=== PATIENT | female | born 1995 | race Caucasian/White ===

== ENCOUNTER 2021-10-15 10:12 | Observation (INO) ==
[2021-10-15] MEDS ORDERED: 0.9 % Sodium Chloride 1,000 ML IVC ONE (10:44)
[2021-10-15 11:29] LABS: Bacteria,Urine Few per hpf (None-Few); Bilirubin,Urine Negative (Negative); Blood,Urine Negative (Negative); Clarity,Urine Clear (Clear); Color,Urine Yellow (Yellow); Glucose,Urine (UA) Normal (Normal); Ketones,Urine >150 mg/dL (Negative); Leukocyte Esterase,Urine Small (Negative); Mucus,Urine Moderate per lpf (None-Few); Nitrite,Urine Negative (Negative); PH,Urine 5.5 pH Units (5.0-8.0); Protein,Urine Trace mg/dL (Neg-Trace); RBC,Urine 0-3 per hpf (0-3); Specific Gravity,Urine 1.026 (1.010-1.025); Squamous Epithelial Cell,Urine Few per hpf (None-Few); WBC,Urine 0-3 per hpf (0-3)
[2021-10-15 12:32] LABS: Basophils % 0.3 %; Eosinophils % 0.1 %; Hematocrit 35.6 % (35.3-44.9); Hemoglobin 12.1 g/dL (11.5-15.4); Immature Granulocytes % 0.3 % (0-4); Lymphocytes % 13.2 %; Mean Corpuscular Hemoglobin 29.1 pg (28.0-33.3); Mean Corpuscular Volume 85.6 fL (83.0-100.0); Mean Platelet Volume 11.2 fL (9.4-12.4); Monocytes # 0.3 K/mcL (0.0-1.3); Monocytes % 4.6 %; Neutrophils # 5.9 K/mcL (1.6-8.9); Platelet Count 174 K/mcL (140-400); Red Blood Count 4.16 M/mcL (3.82-4.97); Red Cell Distribution Width 12.6 % (11.5-14.5); Segmented Neutrophils % 81.5 %; White Blood Count 7.2 K/mcL (4.3-11.1)
[2021-10-15 12:45] LABS: Alanine Aminotransferase 8 Units/L (7-52); Albumin 4.2 g/dL (3.5-5.7); Albumin/Globulin Ratio 1.4 (1.1-2.2); Alkaline Phosphatase 90 Units/L (34-104); Aspartate Amino Transferase 17 Units/L (13-39); BUN/Creatinine Ratio 20 (6-26); Bilirubin,Total 0.6 mg/dL (0.3-1.0); Blood Urea Nitrogen 11 mg/dL (6-20); Carbon Dioxide 23 mEq/L (23-29); Chloride 103 mEq/L (98-107); Globulin 2.9 g/dL (2.4-3.5); Glucose 74 mg/dL (70-105); Lipase 11 Units/L (11-82); Osmolality,Calculated 280 (280-300); Potassium 3.8 mEq/L (3.5-5.1); Sodium 136 mEq/L (136-145); Total Protein 7.1 g/dL (6.4-8.9); eGFR For African Americans > 60 (> 60); eGFR For Non-African Americans > 60 (> 60)
[2021-10-15] MEDS: Pyridoxine (B-6) 100 MG/ML VIAL IVP ONE ×2 (12:59→14:31)
[2021-10-15] MEDS ORDERED: 0.9 % Sodium Chloride 500 ML IVC ONE (13:56)
[2021-10-15] MEDS ORDERED: Rho Immune Globulin 1,500 UNIT SYRINGE IM ONE (14:56)
[2021-10-15] MEDS ORDERED: *HR* Promethazine 25 MG/ML VIAL IM ONE (15:02)
[2021-10-15] MEDS ORDERED: Pyridoxine (B-6) 100 MG/ML VIAL IVP ONE (16:09)
[2021-10-15] MEDS ORDERED: *HR* Promethazine 25 MG/ML VIAL IM PRN (17:05)
[2021-10-15] MEDS ORDERED: Ondansetron 4 MG/2 ML VIAL IVP PRN (17:11)
[2021-10-15] MEDS: Ringers Solution, Lactated 1,000 ML IVC SCH ×2 (17:59→22:11)
[2021-10-15] MEDS: Pantoprazole 40 MG VIAL IVP SCH ×2 (18:00→22:03)
[2021-10-15 22:42] LABS: Hematocrit 36.2 % (35.3-44.9); Hemoglobin 12.2 g/dL (11.5-15.4)
[2021-10-15] MEDS: *HR* Promethazine 25 MG/ML VIAL IM PRN (22:47)
[2021-10-16 01:50] LABS: Basophils % 0.6 %; Eosinophils % 0.3 %; Hematocrit 33.5 % (35.3-44.9); Hemoglobin 11.3 g/dL (11.5-15.4); Immature Granulocytes % 0.1 % (0-4); Lymphocytes # 1.4 K/mcL (0.6-4.6); Lymphocytes % 20.2 %; Mean Corpuscular HGB Conc 33.7 g/dL (31.6-35.5); Mean Corpuscular Hemoglobin 28.8 pg (28.0-33.3); Mean Corpuscular Volume 85.5 fL (83.0-100.0); Mean Platelet Volume 10.6 fL (9.4-12.4); Monocytes # 0.4 K/mcL (0.0-1.3); Monocytes % 6.3 %; Neutrophils # 5.1 K/mcL (1.6-8.9); Platelet Count 163 K/mcL (140-400); Red Blood Count 3.92 M/mcL (3.82-4.97); Red Cell Distribution Width 12.7 % (11.5-14.5); Segmented Neutrophils % 72.5 %
[2021-10-16 01:57] LABS: INR 1.4; Prothrombin Time 15.3 Seconds (9.4-12.1)
[2021-10-16 02:09] LABS: Alanine Aminotransferase 6 Units/L (7-52); Albumin 3.6 g/dL (3.5-5.7); Albumin/Globulin Ratio 1.5 (1.1-2.2); Alkaline Phosphatase 77 Units/L (34-104); Aspartate Amino Transferase 19 Units/L (13-39); BUN/Creatinine Ratio 20 (6-26); Bilirubin,Total 0.6 mg/dL (0.3-1.0); Blood Urea Nitrogen 9 mg/dL (6-20); Calcium 8.4 mg/dL (8.6-10.3); Carbon Dioxide 18 mEq/L (23-29); Chloride 106 mEq/L (98-107); Globulin 2.4 g/dL (2.4-3.5); Glucose 61 mg/dL (70-105); Magnesium 1.7 mg/dL (1.6-2.6); Osmolality,Calculated 271 (280-300); Potassium 3.8 mEq/L (3.5-5.1); Sodium 132 mEq/L (136-145)
[2021-10-16] MEDS: Pantoprazole 40 MG VIAL IVP SCH ×2 (05:51→20:09)
[2021-10-16] MEDS ORDERED: Dextrose Gel 15 GM/37.5 ML TUBE PO PRN ×2 (08:06)
[2021-10-16] MEDS ORDERED: D5% in Water 1,000 ML IVC PRN (08:06)
[2021-10-16] MEDS: *HR* Dextrose 50 % in Water (Syg) 50 ML SYRINGE IVP PRN ×2 (08:13→11:13)
[2021-10-16] MEDS: *HR* Promethazine 25 MG/ML VIAL IM PRN (08:25)
[2021-10-16] MEDS ORDERED: Sennosides/Docusate Sodium TABLET PO SCH (10:00)
[2021-10-16] MEDS: Acetaminophen 325 MG TABLET PO PRN (10:47)
[2021-10-16] MEDS: Ringers Solution, Lactated 1,000 ML IVC SCH ×2 (10:49→20:10)
[2021-10-16] MEDS ORDERED: Ondansetron ODT 4 MG TAB.RAPDIS SL PRN ×2 (10:58→19:15)
[2021-10-16] MEDS ORDERED: Scopolamine Patch 1.5 MG PATCH.TD72 TD SCH (19:30)
[2021-10-16] MEDS: Pyridoxine (B-6) 50 MG TABLET PO SCH (20:52)
[2021-10-17] MEDS: Ringers Solution, Lactated 1,000 ML IVC SCH ×2 (00:34→08:06)
[2021-10-17] MEDS: Pantoprazole 40 MG VIAL IVP SCH ×2 (06:09→17:19)
[2021-10-17] MEDS ORDERED: Chloraseptic Spray 177 ML BOTTLE MM PRN (06:12)
[2021-10-17] MEDS: Pyridoxine (B-6) 50 MG TABLET PO SCH ×3 (09:41→20:21)
[2021-10-17] MEDS: polyethylene glycoL 3350 17 GM POWD.PACK PO SCH (09:41)
[2021-10-17] MEDS: Prenatal Vit/FA 1 EACH TABLET PO SCH (09:41)
[2021-10-17] MEDS: Acetaminophen 325 MG TABLET PO PRN (11:06)
[2021-10-17] MEDS ORDERED: Ringers Solution, Lactated 1,000 ML IVC SCH (14:00)
[2021-10-17] MEDS ORDERED: Pyridoxine (B-6) 20 MG, DiphenhydraMINE 50 MG, MVI, adult with vitamin K 10 ML in D5%... IVP SCH (15:00)
[2021-10-17] MEDS: dexAMETHasone 4 MG TABLET PO SCH ×2 (16:13→20:21)
[2021-10-17] MEDS ORDERED: Pyridoxine (B-6) 20 MG, DiphenhydraMINE 50 MG, MVI, adult with vitamin K 10 ML in D5%... IVPB SCH (17:00)
[2021-10-17] MEDS: PYRIDOXINE IVP SCH ×2 (17:19→22:40)
[2021-10-17] MEDS: DIPHENHYDRAMINE IVP SCH ×2 (17:19→22:40)
[2021-10-17] MEDS: D5 IVP SCH ×2 (17:19→22:40)
[2021-10-17] MEDS: LACTATED RINGERS IVP SCH ×2 (17:19→22:40)
[2021-10-17] MEDS ORDERED: VITAMIN K IVPB SCH (18:00)
[2021-10-17] MEDS ORDERED: SODIUM CHLORIDE 0.9% IVPB SCH (18:00)
[2021-10-17] MEDS ORDERED: MVI IVPB SCH (18:00)
[2021-10-17] MEDS ORDERED: LACTATED RINGERS IVPB SCH (23:00)
[2021-10-17] MEDS ORDERED: D5 IVPB SCH (23:00)
[2021-10-17] MEDS ORDERED: PYRIDOXINE IVPB SCH (23:00)
[2021-10-17] MEDS ORDERED: DIPHENHYDRAMINE IVPB SCH (23:00)
[2021-10-18] MEDS: dexAMETHasone 4 MG TABLET PO SCH ×2 (01:48→07:30)
[2021-10-18 03:50] LABS: Alanine Aminotransferase 13 Units/L (7-52); Albumin 3.9 g/dL (3.5-5.7); Albumin/Globulin Ratio 1.4 (1.1-2.2); Alkaline Phosphatase 71 Units/L (34-104); Aspartate Amino Transferase 30 Units/L (13-39); BUN/Creatinine Ratio 13 (6-26); Bilirubin,Total 0.3 mg/dL (0.3-1.0); Blood Urea Nitrogen 6 mg/dL (6-20); Calcium 8.5 mg/dL (8.6-10.3); Carbon Dioxide 20 mEq/L (23-29); Chloride 109 mEq/L (98-107); Globulin 2.7 g/dL (2.4-3.5); Glucose 182 mg/dL (70-105); Osmolality,Calculated 284 (280-300); Potassium 3.6 mEq/L (3.5-5.1); Sodium 136 mEq/L (136-145); Total Protein 6.6 g/dL (6.4-8.9)
[2021-10-18 03:51] LABS: BUN/Creatinine Ratio 11 (6-26); Blood Urea Nitrogen 6 mg/dL (6-20); Calcium 8.7 mg/dL (8.6-10.3); Carbon Dioxide 19 mEq/L (23-29); Chloride 109 mEq/L (98-107); Glucose 184 mg/dL (70-105); Magnesium 1.5 mg/dL (1.6-2.6); Osmolality,Calculated 284 (280-300); Potassium 3.7 mEq/L (3.5-5.1); Sodium 136 mEq/L (136-145)
[2021-10-18] MEDS: Pantoprazole 40 MG VIAL IVP SCH (04:34)
[2021-10-18] MEDS: LACTATED RINGERS IVP SCH ×2 (04:35→10:28)
[2021-10-18] MEDS: D5 IVP SCH ×2 (04:35→10:28)
[2021-10-18] MEDS: PYRIDOXINE IVP SCH ×2 (04:35→10:28)
[2021-10-18] MEDS: DIPHENHYDRAMINE IVP SCH ×2 (04:35→10:28)
[2021-10-18] MEDS: Prenatal Vit/FA 1 EACH TABLET PO SCH (07:30)
[2021-10-18] MEDS: Pyridoxine (B-6) 50 MG TABLET PO SCH (07:30)
[2021-10-18] MEDS: Acetaminophen 325 MG TABLET PO PRN (07:30)
[2021-10-18] MEDS: polyethylene glycoL 3350 17 GM POWD.PACK PO SCH (07:35)
[2021-10-18 11:03] VITALS: BP 106/62; PULSE 99; TEMP 97.9; O2SAT 97
== END 2021-10-18 14:39 | disposition home or self-care (01) ==
LOC: EMEROOARM 10:12 → 3BNU 10:12 → SUATTDRO 21:28 → 3BNU 22:15
PROVIDERS: ADMIT Internal Medicine; ATTEND Nurse Practitioner

== ENCOUNTER 2021-10-22 21:05 | Observation (INO) ==
[2021-10-22] MEDS ORDERED: Ringers Solution, Lactated 1,000 ML IVC ONE (22:05)
[2021-10-22] MEDS ORDERED: *HR* Promethazine 25 MG/ML VIAL IM PRN (22:07)
[2021-10-22 22:26] LABS: Basophils % 0.3 %; Eosinophils # 0.1 K/mcL (0.0-0.6); Eosinophils % 0.6 %; Hematocrit 35.4 % (35.3-44.9); Hemoglobin 12.5 g/dL (11.5-15.4); Immature Granulocytes % 0.4 % (0-4); Lymphocytes # 2.3 K/mcL (0.6-4.6); Lymphocytes % 21.3 %; Mean Corpuscular HGB Conc 35.3 g/dL (31.6-35.5); Mean Corpuscular Hemoglobin 29.4 pg (28.0-33.3); Mean Corpuscular Volume 83.3 fL (83.0-100.0); Mean Platelet Volume 10.9 fL (9.4-12.4); Monocytes # 0.5 K/mcL (0.0-1.3); Monocytes % 4.5 %; Neutrophils # 7.9 K/mcL (1.6-8.9); Platelet Count 198 K/mcL (140-400); Red Blood Count 4.25 M/mcL (3.82-4.97); Red Cell Distribution Width 12.7 % (11.5-14.5); Segmented Neutrophils % 72.9 %; White Blood Count 10.8 K/mcL (4.3-11.1)
[2021-10-22] MEDS: Metoclopramide 10 MG/2 ML VIAL IVP PRN (22:31)
[2021-10-22 22:45] LABS: BUN/Creatinine Ratio 13 (6-26); Blood Urea Nitrogen 6 mg/dL (6-20); Carbon Dioxide 25 mEq/L (23-29); Chloride 100 mEq/L (98-107); Glucose 84 mg/dL (70-105); Osmolality,Calculated 273 (280-300); Potassium 3.7 mEq/L (3.5-5.1); Sodium 133 mEq/L (136-145)
[2021-10-22] MEDS: Ringers Solution, Lactated 1,000 ML IVC SCH (23:00)
[2021-10-23] MEDS: Ringers Solution, Lactated 1,000 ML IVC SCH (06:36)
[2021-10-23] MEDS: Metoclopramide 10 MG/2 ML VIAL IVP PRN (06:37)
[2021-10-23] MEDS ORDERED: 1: Ringers Solution, Lactated 1,000 ML with Promethazine 50 MG 2: Ringers Solution, Lac IV SCH (08:45)
[2021-10-23] MEDS: Prenatal Vit/FA 1 EACH TABLET PO SCH (09:13)
[2021-10-23] MEDS: Ondansetron 4 MG/2 ML VIAL IVP SCH ×3 (09:14→20:45)
[2021-10-23] MEDS ORDERED: Scopolamine Patch 1.5 MG PATCH.TD72 TD SCH (09:30)
[2021-10-23] MEDS ORDERED: Promethazine 50 MG in Ringers Solution, Lactated 1,000 ML IVPB SCH (11:00)
[2021-10-23] MEDS: 1: Ringers Solution, Lactated 1,000 ML with Promethazine 50 MG 2: Ringers Solution, Lac IVPB SCH ×2 (11:48→20:44)
[2021-10-23] MEDS ORDERED: Pyridoxine (B-6) 50 MG in Ringers Solution, Lactated 1,000 ML IVPB SCH (19:00)
[2021-10-23 21:00] VITALS: TEMP 98
[2021-10-24] MEDS ORDERED: MVI, adult with vitamin K 10 ML in Ringers Solution, Lactated 1,000 ML IVC SCH (03:00)
[2021-10-24] MEDS: Ondansetron 4 MG/2 ML VIAL IVP SCH (05:03)
[2021-10-24] MEDS: 1: Ringers Solution, Lactated 1,000 ML with Promethazine 50 MG 2: Ringers Solution, Lac IVPB SCH (05:04)
[2021-10-24 07:05] LABS: BUN/Creatinine Ratio 13 (6-26); Blood Urea Nitrogen 7 mg/dL (6-20); Calcium 8.3 mg/dL (8.6-10.3); Carbon Dioxide 23 mEq/L (23-29); Chloride 106 mEq/L (98-107); Glucose 87 mg/dL (70-105); Osmolality,Calculated 279 (280-300); Potassium 3.9 mEq/L (3.5-5.1); Sodium 136 mEq/L (136-145)
[2021-10-24] MEDS: Prenatal Vit/FA 1 EACH TABLET PO SCH (10:04)
[2021-10-24 11:33] VITALS: BP 98/53; PULSE 83; O2SAT 100
== END 2021-10-24 11:55 | disposition home or self-care (01) ==
LOC: 1NENUPED
PROVIDERS: ADMIT Student in an Organized Health Care Education/Training Program; ATTEND Student in an Organized Health Care Education/Training Program